=== PATIENT | female | born 1945 | race Hispanic/Latino ===

== ENCOUNTER 2017-06-27 13:16 | Emergency (ER) | payer OTHER ==
[~2017-06-27] VITALS: Ht 167.6 cm; Wt 81.8 kg
[~2017-06-27 13:16] MED LIST: HYDROCHLOROTHIA25 MG PO
[2017-06-27] MEDS ORDERED: MOTRIN800 MG PO (16:45)
[2017-06-27 17:25] VITALS: BP 150/98
== END 2017-06-27 17:28 | disposition home or self-care (01) ==
LOC: EME 13:16
PROC: 2W3SX1Z Immobilization of Right Foot using Splint (ICD-10-PCS; principal; 2017-06-27)
DX: S92.901A Unspecified fracture of right foot, initial encounter for closed fracture (principal); W10.9XXA Fall (on) (from) unspecified stairs and steps, initial encounter; I10 Essential (primary) hypertension; F17.200 Nicotine dependence, unspecified, uncomplicated; Z79.82 Long term (current) use of aspirin
CPT/HCPCS: 73610; 73630; 99281; 99284